=== PATIENT | male | born 1990 | race Two or more races ===

== ENCOUNTER 2020-10-08 08:34 | Emergency (ER) | payer SELFPAY ==
[~2020-10-08] VITALS: Ht 167.6 cm; Wt 80.6 kg
[2020-10-08] MEDS ORDERED: KETOROLAC 30 MG/1 ML IM ONE (09:00)
[2020-10-08] MEDS ORDERED: KETOROLAC 30 MG/1 ML ONE (09:10)
--- NOTE | 2020-10-08 09:22 | NUR ---
PT AMBULATED TO ROOM FROM TRIAGE. PT STATED THAT AROUND 0800 PT SUDDENLY FELT 7/10 SUBSTERNAL CHEST PAIN THAT GET WORSE WITH MOVEMENT AND DEEP BREATHING. PT DENIES ANY SOB OR FEVER. PT DENIES ANY SIGNIFICANT PMH. STATED HE SOMETIMES GETS THIS PAIN AFTER DRINKING COFFEE, BUT THIS PAIN FEELS WORSE TODAY.
[2020-10-08 09:38] VITALS: BP 112/69
--- NOTE | 2020-10-08 10:28 | NUR ---
DISCHARGE INSTRUCTIONS REVIEWED WITH PT. ALL QUESTIONS ANSWERED AT THIS TIME.
== END 2020-10-08 10:30 | disposition home or self-care (01) ==
LOC: ED 09:42
DX: R07.89 Other chest pain (principal)
CPT/HCPCS: 71046; 93005; 96372; 99283; J1885